=== PATIENT | female | born 1980 | race Caucasian/White ===

== ENCOUNTER 2024-04-26 07:05 | Outpatient (CLI) | payer OTHER | END 2024-04-26 14:22 | disposition home or self-care (01) | LOC: SONOGRAMA 07:05 | PROVIDERS: ATTEND Pediatrics | DX: R42 Dizziness and giddiness (principal); D64.9 Anemia, unspecified; R10.9 Unspecified abdominal pain ==

== ENCOUNTER → 2025-05-09 | Outpatient (CLI) | payer OTHER | END | disposition home or self-care (01) | LOC: SONOGRAMA 06:28 | PROVIDERS: ATTEND General Practice | DX: E28.2 Polycystic ovarian syndrome (principal) ==